=== PATIENT | female | born 1965 | race Caucasian/White ===

== ENCOUNTER → 2021-02-19 | Outpatient (CLI) | payer MEDICARE, MEDICAID ==
[~2021-02-19] VITALS: Ht 175.3 cm; Wt 113.6 kg
[~2021-02-19] MED LIST: aminophylline 250mg/10ml inj. IV PRN; nitroGLYCERIN 0.4mg SUBLingual tab SL PRN; normal saline 500ml IV soln 500 ML IV ONE; regadenoson 0.4mg/5ml syringe IV ONE
[2021-02-19 10:33] VITALS: BP 145/77
[2021-02-19 10:39] VITALS: BP 144/59
[2021-02-19 10:40] VITALS: BP 148/75
[2021-02-19 10:41] VITALS: BP 134/63
[2021-02-19 10:42] VITALS: BP 145/70
[2021-02-19 10:43] VITALS: BP 150/75
== END | disposition home or self-care (01) ==
LOC: RAD 07:01
PROVIDERS: ATTEND Internal Medicine Cardiovascular Disease
DX: R07.9 Chest pain, unspecified (principal)
CPT/HCPCS: 78452; 93017; A9500; J2785; J7040